=== PATIENT | male | born 1945 | race Caucasian/White ===

== ENCOUNTER 2021-06-29 16:54 | Emergency (ER) | payer OTHER, BC ==
[2021-06-29] MEDS ORDERED: Sodium Chloride 0.9% 500 ML IV ONE (18:45)
[2021-06-29] MEDS ORDERED: Sodium Chloride 0.9% 10 ML Syringe FLUSH PRN (18:45)
[2021-06-29] MEDS ORDERED: Ondansetron 4 MG/2 ML SDV IVPUSH ONE (18:45)
--- NOTE | 2021-06-29 18:50 | EDM.PDOC ---
<Jo Ann Hein - Last Filed: 06/29/21 22:53> ED HPI GENERAL MEDICAL PROBLEM - General Chief Complaint: Lower Extremity Injury/Pain Stated Complaint: FOOT INFECTION Time Seen by Provider: 06/29/21 18:27 - Related Data Allergies Allergy/AdvReac Type Severity Reaction Status Date / Time No Known Allergies Allergy Verified 10/14/16 11:45 Home Meds: Home Meds Acetaminophen/oxyCODONE [Percocet 325-5 MG] 1 tab PO Q6H PRN #15 tablet 10/14/16 [Rx] Cholecalciferol (Vitamin D3) [Vitamin D3] 1 tab PO DAILY 10/14/16 [History] Ciprofloxacin [Ciprofloxacin HCl] 500 mg PO BID #20 tablet 10/14/16 [Rx] Finasteride [Proscar] 5 mg PO QPM 10/14/16 [History] Ibuprofen [Motrin] 800 mg pe PO TID PRN 10/14/16 [History] Sildenafil Citrate 20 mg PO ASDIRECTED PRN 10/14/16 [History] Tamsulosin HCl 0.4 mg PO QPM 10/14/16 [History] metroNIDAZOLE [Flagyl] 500 mg PO Q8H #30 tablet 10/14/16 [Rx] Course - Re-Assessments/Exams Free Text/Narrative Re-Assessment/Exam: 06/29/21 21:55 Care was assumed from Cheryl Redding NP due to end of shift. Patient is requesting medication for pain to his left foot. He takes Percocet 2 tabs at home as needed for pain per his report. I will order this now. Repeat lactic will be collected at 2200. 06/29/21 22:54 Repeat lactic continues to be elevated at 2.7. Case was discussed with ER physician Dr. Castillo. Recommend starting normal saline at 100 ml/hr and discontinue the PICC line and send for culture. I have ordered lactic acid to be repeated 3 hours from the previous draw. Dr. Castillo will assume care and disposition to the end of shift. Departure - Departure Disposition: Home, Self-Care 01 Clinical Impression: Dizziness, Elevated lactic acid level Nausea and vomiting Qualifiers: Vomiting type: unspecified Vomiting Intractability: non-intractable Qualified Code(s): R11.2 - Nausea with vomiting, unspecified - Discharge Information Instructions: Nausea and Vomiting, Adult, [id number] Referrals: Jaclyn Sandra MD [Primary Care Provider] - 1 Week Forms: ED Department Discharge Additional Instructions: Keep taking the levaquin as prescribed. Follow up with your doctor within a week. We will call you with results. Please return if you are worse. <Saad Castillo A - Last Filed: 06/30/21 02:40> Course - Re-Assessments/Exams Free Text/Narrative Re-Assessment/Exam: 06/30/21 02:40 Taking over for Cheryl and Jo Ann. The patient's lactic acid is down to normal now. He is on levaquin at home. I will have him continue that until we get cultures back. I will discharge him home. He feels better. Departure - Departure Time of Disposition: 02:45 Condition: Good - Discharge Information *PRESCRIPTION DRUG MONITORING PROGRAM REVIEWED*: Not Applicable *COPY OF PRESCRIPTION DRUG MONITORING REPORT IN PATIENT JENNIFER: Not Applicable <Cheryl Redding M - Last Filed: 06/30/21 09:06> ED HPI GENERAL MEDICAL PROBLEM - General Source of Information: Reports: Patient History Limitations: Reports: No Limitations - History of Present Illness INITIAL COMMENTS - FREE TEXT/NARRATIVE: 75-year-old male presents to the emergency department today with complaints of nausea, vomiting and dizziness. 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 Patient states that he ended up getting an infection, MRSA, and the wound and has been receiving vancomycin infusions as an outpatient. He states that he saw his laboratory technology teacher approximately 3 days ago and a wound culture was collected and sent and his laboratory technology teacher notified him that there is no more infection noted in the wound and that he would start skin grafting. Patient still did receive his noon dose of vancomycin today. He states that shortly after the infusion he became nauseated and has vomited several times. He states he also has been feeling dizzy today. Thus he elected to come to the emergency department. Patient states he has no significant past medical history. Past Medical History Cardiovascular History: Reports: High Cholesterol, Hypertension Genitourinary History: Reports: BPH Musculoskeletal History: Reports: Osteoarthritis Psychiatric History: Reports: PTSD - Past Surgical History HEENT Surgical History: Reports: LASIK, Oral Surgery GI Surgical History: Reports: Colonoscopy, Hernia Repair/Other Male Surgical History: Reports: Other (See Below) Other Male Surgeries/Procedures: testicular hypofunction; erectile dysfunction; Musculoskeletal Surgical History: Reports: Knee Replacement, Other (See Below) Other Musculoskeletal Surgeries/Procedures:: bilateral knee Social & Family History - Tobacco Use Tobacco Use Status *Q: Never Tobacco User - Caffeine Use Caffeine Use: Reports: None - Recreational Drug Use Recreational Drug Use: No Review of Systems - Review of Systems Review Of Systems: Comprehensive ROS is negative, except as noted in HPI. ED EXAM, GENERAL - Physical Exam Exam: See Below Exam Limited By: No Limitations General Appearance: Alert, WD/WN, No Apparent Distress Ears: Normal External Exam, Hearing Grossly Normal Nose: Normal Inspection Throat/Mouth: Normal Inspection, Normal Lips, Normal Voice, No Airway Compromise Head: Atraumatic Neck: Normal Inspection, Supple Respiratory/Chest: No Respiratory Distress, Lungs Clear, Normal Breath Sounds, No Accessory Muscle Use, Chest Non-Tender Cardiovascular: Normal Peripheral Pulses, Regular Rate, Rhythm, No Edema, No Murmur Peripheral Pulses: 2+: Radial (L), Radial (R) GI/Abdominal: Normal Bowel Sounds, Soft, Non-Tender, No Distention (Male) Exam: Deferred Rectal (Males) Exam: Deferred Back Exam: Normal Inspection Extremities: Normal Range of Motion, Non-Tender, No Pedal Edema, Normal Capillary Refill, Other (7 cm x 1 cm surgical incision noted to the dorsal aspect of patient's left foot) Neurological: Alert, Oriented, Normal Cognition Psychiatric: Normal Affect, Normal Mood Skin Exam: Warm, Dry, Normal Color, No Rash, Wound/Incision (7 cm x 1 cm surgical incision noted to the dorsal aspect of patient's left foot) Lymphatic: No Adenopathy Course - Vital Signs Text/Narrative:: As stated above, patient presents with what he thinks is of questionable wound infection. Physical exam is essentially unremarkable. He does have a 7 cm laceration noted on the dorsal aspect of his left foot running vertically from his middle toe towards his ankle. Wound is 1 cm and gaping. He does appear clean and no signs or symptoms of infection are appreciated. He is otherwise hemodynamically stable and is afebrile. States he is still feeling nauseated. We will give him a 500 mL bolus of IV fluids and some Zofran for the nausea. Will obtain lab studies to include a CBC, CMP, C-reactive protein, magnesium, lactic acid and blood cultures. Patient does have a PICC line in his arm and this could likely be the cause of infection. Last Recorded V/S: Last Vital Signs Temp 97.3 F 06/30/21 00:00 Pulse 82 06/30/21 00:00 Resp 16 06/30/21 00:00 BP 151/72 H 06/30/21 00:00 Pulse Ox 97 06/30/21 00:00 - Orders/Labs/Meds Orders: Active Orders 24 hr Category Date Time Status BLOOD CULTURE [MREF] Stat Lab 06/29/21 19:03 Received BLOOD CULTURE [MREF] Stat Lab 06/29/21 19:15 Received CULTURE, ANAEROBE & AEROBE [MREF] Stat Lab 06/29/21 20:18 Received CULTURE, ANAEROBE & AEROBE [MREF] Stat Lab 06/29/21 23:10 Received Blood Culture x2 Reflex Set [OM.PC] Stat Oth 06/29/21 18:55 Ordered Saline Lock Insert [OM.PC] Stat Oth 06/29/21 18:45 Ordered Labs: Laboratory Tests 06/29/21 06/29/21 06/29/21 Range/Units 19:03 19:03 19:03 WBC 12.00 H (4.23-9.07) K/mm3 RBC 5.00 (4.63-6.08) M/mm3 Hgb 14.1 (13.7-17.5) gm/dl Hct 41.6 (40.1-51.0) % MCV 83.2 (79.0-92.2) fl MCH 28.2 (25.7-32.2) pg MCHC 33.9 (32.2-35.5) g/dl RDW Std Deviation 44.9 H (35.1-43.9) fL Plt Count 523 H D (163-337) K/mm3 MPV 9.0 L (9.4-12.3) fl Neut % (Auto) 67.8 (34.0-67.9) % Lymph % (Auto) 20.1 L (21.8-53.1) % [place] % (Auto) 8.3 (5.3-12.2) % Eos % (Auto) 0.5 L (0.8-7.0) Baso % (Auto) 1.0 (0.1-1.2) % Neut # (Auto) 8.14 H (1.78-5.38) K/mm3 Lymph # (Auto) 2.41 (1.32-3.57) K/mm3 [place] # (Auto) 0.99 H (0.30-0.82) K/mm3 Eos # (Auto) 0.06 (0.04-0.54) K/mm3 Baso # (Auto) 0.12 H (0.01-0.08) K/mm3 Sodium 135 L (136-145) mEq/L Potassium 4.6 (3.5-5.1) mEq/L Chloride 98 (98-107) mEq/L Carbon Dioxide 27 (21-32) mEq/L Anion Gap 14.6 (5-15) BUN 13 (7-18) mg/dL Creatinine 1.2 (0.7-1.3) mg/dL Est Cr Clr Drug Dosing TNP Estimated GFR (MDRD) 59 (>60) mL/min BUN/Creatinine Ratio 10.8 L (14-18) Glucose 129 H (70-99) mg/dL Lactic Acid 2.8 H* (0.4-2.0) mmol/L Calcium 9.0 (8.5-10.1) mg/dL Magnesium 2.0 (1.8-2.4) mg/dL Total Bilirubin 0.5 (0.2-1.0) mg/dL AST 27 (15-37) U/L ALT 64 H (16-63) U/L Alkaline Phosphatase 84 (46-116) U/L C-Reactive Protein <0.2 (<1.0) mg/dL Total Protein 7.8 (6.4-8.2) g/dl Albumin 3.7 (3.4-5.0) g/dl Globulin 4.1 gm/dL Albumin/Globulin Ratio 0.9 L (1-2) 06/29/21 06/30/21 Range/Units 22:03 00:50 WBC (4.23-9.07) K/mm3 RBC (4.63-6.08) M/mm3 Hgb (13.7-17.5) gm/dl Hct (40.1-51.0) % MCV (79.0-92.2) fl MCH (25.7-32.2) pg MCHC (32.2-35.5) g/dl RDW Std Deviation (35.1-43.9) fL Plt Count (163-337) K/mm3 MPV (9.4-12.3) fl Neut % (Auto) (34.0-67.9) % Lymph % (Auto) (21.8-53.1) % [place] % (Auto) (5.3-12.2) % Eos % (Auto) (0.8-7.0) Baso % (Auto) (0.1-1.2) % Neut # (Auto) (1.78-5.38) K/mm3 Lymph # (Auto) (1.32-3.57) K/mm3 [place] # (Auto) (0.30-0.82) K/mm3 Eos # (Auto) (0.04-0.54) K/mm3 Baso # (Auto) (0.01-0.08) K/mm3 Sodium (136-145) mEq/L Potassium (3.5-5.1) mEq/L Chloride (98-107) mEq/L Carbon Dioxide (21-32) mEq/L Anion Gap (5-15) BUN (7-18) mg/dL Creatinine (0.7-1.3) mg/dL Est Cr Clr Drug Dosing Estimated GFR (MDRD) (>60) mL/min BUN/Creatinine Ratio (14-18) Glucose (70-99) mg/dL Lactic Acid 2.7 H* 1.6 (0.4-2.0) mmol/L Calcium (8.5-10.1) mg/dL Magnesium (1.8-2.4) mg/dL Total Bilirubin (0.2-1.0) mg/dL AST (15-37) U/L ALT (16-63) U/L Alkaline Phosphatase (46-116) U/L C-Reactive Protein (<1.0) mg/dL Total Protein (6.4-8.2) g/dl Albumin (3.4-5.0) g/dl Globulin gm/dL Albumin/Globulin Ratio (1-2) Meds: Medications Discontinued Medications Generic Name Dose Route Start Last Admin Trade Name Freq PRN Reason Stop Dose Admin Sodium Chloride 500 mls @ 500 mls/hr 06/29/21 18:45 06/29/21 19:07 Normal Saline IV 06/29/21 19:44 500 mls/hr .BOLUS ONE Administration Ceftriaxone Sodium 2 gm/ 100 mls @ 200 mls/hr 06/29/21 19:58 06/29/21 20:43 Sodium Chloride IV 06/29/21 20:27 200 mls/hr ONETIME ONE Administration Sodium Chloride 1,000 mls @ 150 mls/hr 06/29/21 22:52 06/29/21 23:15 Normal Saline IV 06/30/21 05:31 150 mls/hr NOW STA Administration Ondansetron HCl 4 mg 06/29/21 18:45 06/29/21 19:05 Ondansetron 4 Mg/2 Ml Sdv IVPUSH 06/29/21 18:46 4 mg ONETIME ONE Administration Oxycodone/Acetaminophen 2 tab 06/29/21 21:39 06/29/21 22:06 Acetaminophen/Oxycodone 325-5 Mg Tab PO 06/29/21 21:40 2 tab ONETIME ONE Administration Sodium Chloride 10 ml 06/29/21 18:45 06/29/21 19:06 Sodium Chloride 0.9% 10 Ml Syringe FLUSH 10 ml ASDIRECTED PRN Administration Keep Vein Open Sepsis Event Note (ED) - Evaluation Sepsis Screening Result: No Definite Risk - Focused Exam Vital Signs: Vital Signs Temp Pulse Resp BP Pulse Ox 06/30/21 00:00 97.3 F 82 16 151/72 H 97 - My Orders Last 24 Hours: My Active Orders 06/29/21 18:45 Saline Lock Insert [OM.PC] Stat 06/29/21 18:55 Blood Culture x2 Reflex Set [OM.PC] Stat 06/29/21 19:03 BLOOD CULTURE [MREF] Stat 06/29/21 19:15 BLOOD CULTURE [MREF] Stat 06/29/21 20:18 CULTURE, ANAEROBE & AEROBE [MREF] Stat - Assessment/Plan Last 24 Hours: My Active Orders 06/29/21 18:45 Saline Lock Insert [OM.PC] Stat 06/29/21 18:55 Blood Culture x2 Reflex Set [OM.PC] Stat 06/29/21 19:03 BLOOD CULTURE [MREF] Stat 06/29/21 19:15 BLOOD CULTURE [MREF] Stat 06/29/21 20:18 CULTURE, ANAEROBE & AEROBE [MREF] Stat
[2021-06-29] MEDS ORDERED: cefTRIAXone 2 GM in Sodium Chloride 0.9% 100 ML IV ONE (19:58)
[2021-06-29] MEDS ORDERED: Acetaminophen/oxyCODONE 325-5 MG Tab PO ONE (21:39)
[2021-06-29] MEDS ORDERED: Sodium Chloride 0.9% 1,000 ML IV STA (22:52)
[2021-06-30 00:26] VITALS: BP 151/72; PULSE 82
== END 2021-06-30 03:00 | disposition home or self-care (01) ==
LOC: JD.ED 16:54
DX: R11.2 Nausea with vomiting, unspecified (principal); R42 Dizziness and giddiness; R74.02 Elevation of levels of lactic acid dehydrogenase [LDH]; I10 Essential (primary) hypertension; N40.0 Benign prostatic hyperplasia without lower urinary tract symptoms; Z79.899 Other long term (current) drug therapy
CPT/HCPCS: 36415; 80053; 83605; 83735; 85025; 86140; 87040; 87070; 87075; 87205; 96365; 96375; 99284; A9270; J0696; J2405; J7030

== ENCOUNTER 2023-02-22 12:26 | Emergency (ER) | payer BC, OTHER ==
[2023-02-22] MEDS ORDERED: Sodium Chloride 0.9% 1,000 ML IV STA (12:46)
[2023-02-22] MEDS ORDERED: diphenhydrAMINE 50 MG/ML SDV IVPUSH ONE (12:47)
[2023-02-22] MEDS ORDERED: Famotidine 20 MG/2 ML SDV IVPUSH ONE (12:47)
[2023-02-22] MEDS: methylPREDNISolone Sodium Succinate 125 MG/2 ML SDV IVPUSH ONE ×2 (13:15)
[2023-02-22 14:41] VITALS: BP 154/84; PULSE 87
== END 2023-02-22 14:26 | disposition home or self-care (01) ==
LOC: JD.ED 12:26
DX: T63.461A Toxic effect of venom of wasps, accidental (unintentional), initial encounter (principal); E78.00 Pure hypercholesterolemia, unspecified; I10 Essential (primary) hypertension; N40.0 Benign prostatic hyperplasia without lower urinary tract symptoms; Z91.030 Bee allergy status; Z91.011 Allergy to milk products; Z79.899 Other long term (current) drug therapy
CPT/HCPCS: 96361; 96374; 96375; 99281; J2930; J3490; J7030; 99284

== ENCOUNTER 2024-08-28 09:57 | Emergency (ER) | payer OTHER ==
[2024-08-28] MEDS: HYDROmorphone 0.5 MG/0.5 ML Syringe IVPUSH ONE ×4 (10:50→15:50)
[2024-08-28] MEDS: Ondansetron 4 MG/2 ML SDV IVPUSH ONE (10:53)
[2024-08-28] MEDS: Sodium Chloride 0.9% 10 ML Syringe FLUSH PRN (10:55)
[2024-08-28 10:58] LABS: BASOPHILS PERCENT AUTO 0.3 % (0.0-1.0); EOSINOPHILS ABSOLUTE AUTO 0.1 K/mm3 (0.0-0.4); EOSINOPHILS PERCENT AUTO 0.5 % (0.0-6.0); HEMATOCRIT 40.1 % (42.0-52.0); HEMOGLOBIN 13.5 gm/dl (14.0-18.0); IMMATURE GRAN ABSOLUTE AUTO 0.05 K/mm3 (0.00-0.05); IMMATURE GRAN PERCENT AUTO 0.5 % (0.0-0.4); LYMPHOCYTES ABSOLUTE AUTO 1.6 K/mm3 (1.0-4.8); LYMPHOCYTES PERCENT AUTO 14.7 % (24.0-44.0); MEAN CORPUSCULAR HEMOGLOBIN 27.8 pg (28.0-32.0); MEAN CORPUSCULAR HGB CONC 33.7 g/dl (32.0-36.0); MEAN CORPUSCULAR VOLUME 82.5 fl (83.0-99.0); MEAN PLATELET VOLUME 9.2 fl (9.4-12.4); MONOCYTES ABSOLUTE AUTO 0.5 K/mm3 (0.0-0.8); MONOCYTES PERCENT AUTO 4.7 % (0.0-8.0); NEUTROPHILS ABSOLUTE AUTO 8.6 K/mm3 (1.8-7.7); NEUTROPHILS PERCENT AUTO 79.3 % (41.0-71.0); PLATELET COUNT,PLT 273 K/mm3 (150-400); RED BLOOD CELL COUNT 4.86 M/mm3 (4.52-5.90); WHITE BLOOD CELL COUNT,WBC 10.82 K/mm3 (3.9-11.3)
[2024-08-28 11:00] VITALS: BP 159/96; PULSE 62
[2024-08-28 11:26] LABS: ALBUMIN 3.7 g/dl (3.4-5.0); ANION GAP 17.2 (5-15); BILIRUBIN TOTAL 0.4 mg/dL (0.2-1.0); BUN/CREATININE RATIO 10.8 (14-18); CALCIUM 8.7 mg/dL (8.5-10.1); CREATININE 1.3 mg/dL (0.7-1.3); EST CRCL DRUG DOSING (CG) 49.13 mL/min; POTASSIUM,K 4.2 mEq/L (3.5-5.1); PROTEIN TOTAL,TP 7.4 g/dl (6.4-8.2)
[2024-08-28] MEDS: Iopamidol 612 MG/ML 100 ML Bottle IVPUSH ONE (13:33)
[2024-08-28] MEDS: Sodium Chloride 0.9% 10 ML Syringe FLUSH ONE (13:33)
[2024-08-28] MEDS: Ketorolac 15 MG/ML SDV IVPUSH ONE (14:34)
[2024-08-28 14:43] LABS: APPEARANCE,URINE CLEAR (Clear); BILIRUBIN,URINE NEGATIVE (Negative); COLOR,URINE YELLOW (Yellow); GLUCOSE,URINE NEGATIVE (Negative); KETONES,URINE NEGATIVE (Negative); LEUKOCYTE ESTERASE,URINE NEGATIVE (Negative); NITRITE,URINE NEGATIVE (Negative); OCCULT BLOOD,URINE 3+ (Negative); PROTEIN,URINE 1+ (Negative); UROBILINOGEN,URINE 0.2 (0.2-1.0)
[2024-08-28 15:59] LABS: BACTERIA,URINE FEW /hpf (FEW); MUCUS,URINE FEW /hpf (FEW); RBC,URINE 40-50 /hpf (0-5); SQUAMOUS EPITHELIAL CELLS,UR 0-5 /hpf (0-5); WBC,URINE 0-5 /hpf (0-5)
== END 2024-08-28 15:56 | disposition home or self-care (01) ==
LOC: JD.ED 09:57
DX: N13.2 Hydronephrosis with renal and ureteral calculous obstruction (principal); I10 Essential (primary) hypertension; Z96.659 Presence of unspecified artificial knee joint; Z91.011 Allergy to milk products; Z91.030 Bee allergy status; Z79.52 Long term (current) use of systemic steroids; Z79.899 Other long term (current) drug therapy
CPT/HCPCS: 36415; 74177; 76870; 80053; 81001; 85025; 93975; 96374; 96375; 96376; 99284; J1885; J2405; Q9967